=== PATIENT | male | born 2000 | race African-American/Black ===

== ENCOUNTER 2021-07-06 11:58 | Emergency (ER) | payer OTHER ==
[~2021-07-06] VITALS: Ht 165.1 cm; Wt 64.0 kg
[2021-07-06] MEDS ORDERED: IBUPROFEN 600MG TABLET PO ONE (13:00)
[2021-07-06 13:41] VITALS: BP 124/73
[2021-07-06] MEDS ORDERED: ALBU6.7H9 INH (13:56)
== END 2021-07-06 14:10 | disposition home or self-care (01) ==
LOC: ER 11:58
DX: R06.00 Dyspnea, unspecified (principal); Z20.822 Contact with and (suspected) exposure to COVID-19; F12.10 Cannabis abuse, uncomplicated; Z98.890 Other specified postprocedural states
CPT/HCPCS: 71045; 99284; C9803; U0003; U0005

== ENCOUNTER 2022-04-28 07:37 | Emergency (ER) | payer MEDICARE, MEDICAID ==
[~2022-04-28] VITALS: Ht 165.1 cm; Wt 68.0 kg
[~2022-04-28 07:37] MED LIST: ALBU6.7H9 INH
[2022-04-28] MEDS ORDERED: SULF1TAB48 MT (08:45)
[2022-04-28 09:03] VITALS: BP 116/84
== END 2022-04-28 09:04 | disposition home or self-care (01) ==
LOC: ER 08:05
DX: L02.416 Cutaneous abscess of left lower limb (principal); L73.9 Follicular disorder, unspecified; F12.10 Cannabis abuse, uncomplicated
CPT/HCPCS: 99281

== ENCOUNTER 2022-10-04 13:23 | Emergency (ER) | payer MEDICARE, MEDICAID ==
[~2022-10-04] VITALS: Ht 165.1 cm; Wt 69.0 kg
[~2022-10-04 13:23] MED LIST changes: +ALBU6.7H3 INH; -ALBU6.7H9 INH; +SULF1TAB48 MT
[2022-10-04] MEDS ORDERED: ACET-2708 MT (15:07)
[2022-10-04] MEDS ORDERED: IBUP-2029 MT (15:07)
[2022-10-04 15:17] VITALS: BP 130/75
== END 2022-10-04 15:24 | disposition home or self-care (01) ==
LOC: ER 13:23
DX: M94.0 Chondrocostal junction syndrome [Tietze] (principal); R94.31 Abnormal electrocardiogram [ECG] [EKG]; J45.909 Unspecified asthma, uncomplicated; F12.10 Cannabis abuse, uncomplicated
CPT/HCPCS: 71045; 93005; 99283